=== PATIENT | female | born 1995 | race Caucasian/White ===

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

== ENCOUNTER 2017-01-19 01:27 | Emergency (ER) | payer OTHER ==
[~2017-01-19] VITALS: Ht 162.6 cm; Wt 105.7 kg
[2017-01-19 01:37] VITALS: BP 112/62
--- NOTE | 2017-01-19 01:44 | NUR ---
PT TAKEN TO BED 7
--- NOTE | 2017-01-19 01:50 | NUR ---
Ponce contreras in [facility] - 01/19/[address] at [address] Mclaughlin evaluating patient at bedside.
--- NOTE | 2017-01-19 03:12 | NUR ---
Dr. Mclaughlin evaluating patient at bedside.
[2017-01-19] MEDS ORDERED: cefTRIAXone 1,000 MG in LIDOCAINE 1% ED 2.1 ML IM ONE (03:20)
[2017-01-19] MEDS ORDERED: methylPREDNISolone SS 125 MG in WATER STERILE 2 ML IM ONE (03:20)
[2017-01-19 03:34] VITALS: BP 115/67
--- NOTE | 2017-01-19 03:35 | NUR ---
Patient discharged with v/s stable BY DR. ROSE. Written and verbal after care instructions given and explained. Patient alert, oriented and verbalized understanding of instructions. Ambulatory with steady gait. All questions addressed prior to discharge. ID band removed. Patient advised to follow up with PMD. Rx of MEDROL DOSEPAK 4MG, AUGMENTIN 875MG PO given. Patient educated on indication of medication including possible reaction and side effects. Opportunity to ask questions provided and answered.
== END 2017-01-19 03:35 | disposition home or self-care (01) ==
LOC: MED 01:27
DX: J02.9 Acute pharyngitis, unspecified (principal); J45.909 Unspecified asthma, uncomplicated; Z88.5 Allergy status to narcotic agent; Z79.82 Long term (current) use of aspirin; Z79.899 Other long term (current) drug therapy
CPT/HCPCS: 96372; 99284; J0696; J2001; J2930

== ENCOUNTER 2017-02-17 11:15 | Emergency (ER) | payer OTHER ==
[~2017-02-17] VITALS: Ht 163.8 cm; Wt 106.6 kg
[2017-02-17 11:29] VITALS: BP 125/77
[2017-02-17] MEDS ORDERED: ONDANSETRON 4 MG/2 ML VIAL IVP ONE (11:35)
[2017-02-17] MEDS ORDERED: NACL 0.9% 1,000 ML IV SCH (11:35)
[2017-02-17] MEDS ORDERED: NEURONTIN400 MG PO (11:38)
[2017-02-17] MEDS ORDERED: VENTOLIN H0.09 MG/Ac IH (11:55)
[2017-02-17] MEDS ORDERED: PROAIR HFA8.5 GM IH (12:03)
--- NOTE | 2017-02-17 14:28 | NUR ---
PT WHEELCHAIR SSISTED TO BED 8.
--- NOTE | 2017-02-17 14:31 | NUR ---
PT BIB MOTHER C/O VAGINAL BLEEDING W/ CLOTS X 5 WEEKS; PT WENT TO PCP TODAY, PASSED OUT, AND SENT TO ER.PT STATES SHE FEELS DIZZY;DENIES CP/SOB/N/V/F/ANY PAIN AT THIS TIME;ALERT AND AWAKE;NO ACUTE DISTRESS NOTED AT THIS TIME;HOB ELEVATED;NEEDS ATTENDED;SAFETY MEASURES DONE;MD MADE AWARE OF PT'S CONDITION.
--- NOTE | 2017-02-17 15:00 | NUR ---
PT LYING ON BED;NO ACUTE DISTRESS NOTED AT THIS TIME;WILL CONTINUE TO MONITOR PT.
--- NOTE | 2017-02-17 15:20 | NUR ---
IVF OF .9NS AND ZOFRAN WAS PUT ON HOLD BY DR HOANG.
--- NOTE | 2017-02-17 15:20 | NUR ---
Patient discharged with v/s stable. Written and verbal after care instructions given and explained.Patient alert, oriented and verbalized understanding of instructions. Ambulatory with to car. All questions addressed prior to discharge. ID band removed. Patient advised to follow up with PMD.Opportunity to ask questions provided and answered.
[2017-02-17 15:42] VITALS: BP 109/63
== END 2017-02-17 15:20 | disposition home or self-care (01) ==
LOC: MED 11:15
DX: N93.8 Other specified abnormal uterine and vaginal bleeding (principal); N85.00 Endometrial hyperplasia, unspecified; F84.0 Autistic disorder; J45.909 Unspecified asthma, uncomplicated; Z88.5 Allergy status to narcotic agent; Z79.82 Long term (current) use of aspirin; Z79.899 Other long term (current) drug therapy

== ENCOUNTER 2017-03-18 23:56 | Emergency (ER) | payer OTHER ==
[~2017-03-18] VITALS: Ht 162.6 cm; Wt 107.0 kg
[~2017-03-18 23:56] MED LIST changes: -ABILIFY2 MG PO; +ALBU0.0912 IH; +ALBU0.0946 IH; +ARIP2TAB PO; +ASPI325E46 PO; -ASPIRIN325 M3 PO; +BEN50 PO; -BENADRYL50 MG PO; +ESCI5TAB PO; +GABA400C PO; -INTUNIV; +LAM200 PO; -LAMICTAL200 MG PO; -LEXAPRO5 MG PO; -LITHIUM CARBON150 M1 PO; -LITHIUM CARBON150 MG PO; +MONT5CTB PO; -NEURONTIN100 MG PO; -PROAIR HFA0.09 MG/Ac IH; -SINGULAIR5 MG PO; -VENTOLIN0.09 MG/A1 IH; -[UNRECOGNIZED DRUG - OTHER] PO
[2017-03-18 23:57] VITALS: BP 111/84
--- NOTE | 2017-03-19 00:13 | NUR ---
PATIENT PRESENTS TO ED WITH C/O CP NON RADIATING X 1 DAY, PT DENIES N/V/D; SKIN IS PINK/WARM/DRY; AAOX4 WITH EVEN AND STEADY GAIT; LUNGS CLEAR BL; HR EVEN AND REGULAR; PT DENIES ANY FEVER, SOB, OR COUGH AT THIS TIME; PATIENT STATES PAIN OF 10/10 AT THIS TIME; VSS; PATIENT POSITIONED FOR COMFORT; HOB ELEVATED; BEDRAILS UP X2; BED DOWN. ER MD MADE AWARE OF PT STATUS.
--- NOTE | 2017-03-19 00:13 | NUR ---
Patient ambulated to bed 08.
--- NOTE | 2017-03-19 00:28 | NUR ---
Dr. Yee evaluating patient at bedside.
[2017-03-19] MEDS ORDERED: LORazepam 1 MG TAB PO ONE (00:35)
[2017-03-19] MEDS ORDERED: KETOROLAC 30 MG/ML VIAL IM ONE (00:35)
[2017-03-19 01:20] VITALS: BP 113/71
--- NOTE | 2017-03-19 01:20 | NUR ---
Patient discharged with v/s stable. Written and verbal after care instructions given and explained. Patient alert, oriented and verbalized understanding of instructions. Ambulatory with steady gait. All questions addressed prior to discharge. ID band removed. Patient advised to follow up with PMD. Rx of BENADRYL 25MG given. Patient educated on indication of medication including possible reaction and side effects. Opportunity to ask questions provided and answered.
== END 2017-03-19 01:20 | disposition home or self-care (01) ==
LOC: MED 23:56
DX: R07.89 Other chest pain (principal); J45.909 Unspecified asthma, uncomplicated; Z79.82 Long term (current) use of aspirin; Z79.899 Other long term (current) drug therapy; Z88.5 Allergy status to narcotic agent
CPT/HCPCS: 81002; 81025; 90471; 93005; 96372; 99283; J1885

== ENCOUNTER 2017-06-08 16:17 | Emergency (ER) | payer OTHER ==
[~2017-06-08] VITALS: Ht 161.3 cm; Wt 106.2 kg
[2017-06-08 16:23] VITALS: BP 129/75
--- NOTE | 2017-06-08 19:03 | NUR ---
PATIENT LEFT WITHOUT BEING SEEN BY DR. SANTOS. NO FURTHER CARE PROVIDED FOR PATIENT.
== END 2017-06-08 19:03 | disposition left against medical advice (07) ==
LOC: MED 16:17
DX: R55 Syncope and collapse (principal); J45.909 Unspecified asthma, uncomplicated; F31.9 Bipolar disorder, unspecified; F41.9 Anxiety disorder, unspecified; Z53.21 Procedure and treatment not carried out due to patient leaving prior to being seen by health care provider

== ENCOUNTER 2017-07-16 14:47 | Emergency (ER) | payer OTHER ==
[~2017-07-16] VITALS: Ht 162.6 cm; Wt 108.0 kg
[2017-07-16 14:53] VITALS: BP 144/72
--- NOTE | 2017-07-16 15:31 | NUR ---
PT AMBULATED TO BED 5.
--- NOTE | 2017-07-16 15:45 | NUR ---
21F BIB SELF C/O RT WRIST PAIN S/P FALL X YESTERDAY; PT STATES NO LOC AT TIME OF INCIDENT. HX: CONGENITAL HEART DEFECT, ASTHMA, AUTISM, BIPOLAR, DEPRESSION; DENIES N/V/D; SKIN IS PINK/WARM/DRY; AAOX4 WITH EVEN AND STEADY GAIT; LUNGS CLEAR BL; HR EVEN AND REGULAR; PT DENIES ANY FEVER, CP, SOB, OR COUGH AT THIS TIME; PATIENT STATES PAIN OF 8/10 AT THIS TIME; VSS; PATIENT POSITIONED FOR COMFORT; HOB ELEVATED; BEDRAILS UP X2; BED DOWN. ER MD MADE AWARE OF PT STATUS.
--- NOTE | 2017-07-16 16:00 | NUR ---
Dr adams evaluating aao pt at bedside
[2017-07-16 16:16] VITALS: BP 132/76
--- NOTE | 2017-07-16 16:16 | NUR ---
Patient discharged with v/s stable. Written and verbal after care instructions given and explained. Patient alert, oriented and verbalized understanding of instructions. Ambulatory with steady gait. All questions addressed prior to discharge. ID band removed. Patient advised to follow up with PMD. Rx of norco, motrin given. Patient educated on indication of medication including possible reaction and side effects. Opportunity to ask questions provided and answered.
== END 2017-07-16 16:16 | disposition home or self-care (01) ==
LOC: MED 14:47
DX: S52.591A Other fractures of lower end of right radius, initial encounter for closed fracture (principal); J45.909 Unspecified asthma, uncomplicated; Z79.82 Long term (current) use of aspirin; Z88.5 Allergy status to narcotic agent; Z79.899 Other long term (current) drug therapy; W19.XXXA Unspecified fall, initial encounter; Y93.89 Activity, other specified; Y92.89 Other specified places as the place of occurrence of the external cause; Y99.8 Other external cause status
CPT/HCPCS: 73110; 81002; 81025; 99284

== ENCOUNTER 2017-12-17 21:26 | Emergency (ER) | payer OTHER ==
[~2017-12-17] VITALS: Ht 152.4 cm; Wt 115.3 kg
[~2017-12-17 21:26] MED LIST changes: +ALBU-118 IH; -ALBU0.0946 IH
[2017-12-17 21:58] VITALS: BP 152/69
--- NOTE | 2017-12-17 22:06 | NUR ---
TO JORGE, A/W EDWIN HERNANDEZ ERMD NOTED, FOR XRAY RT WRIST
--- NOTE | 2017-12-17 23:23 | NUR ---
PATIENT AMBULATED TO ER BED 4.
--- NOTE | 2017-12-17 23:26 | NUR ---
22Y F BIB FAMILY C/O RIGHT WRIST PAIN X 2 HOURS. PT STATES SHE HAD MECHANICAL FALL LANDING ON HER RIGHT WRIST. CMS INTACT, CAP REFILL <3 SECS. PT DENIES ANY LOC/KO. PT DENIES ANY N/V/D OR CP AT THE MOMENT. PT AAOX4. PT STATES PAIN IS CONSTANT, SHARP, NON RADIATING 7/10 PAIN.
[2017-12-18 00:38] VITALS: BP 146/86
--- NOTE | 2017-12-18 00:38 | NUR ---
Patient discharged with v/s stable. Written and verbal after care instructions given and explained. Patient verbalized understanding. Ambulatory with steady gait. All questions addressed prior to discharge. Advised to follow up with PMD.
== END 2017-12-18 00:38 | disposition home or self-care (01) ==
LOC: MED 21:26 → EEVIPCON 21:26 → MED 12-18 00:38
DX: M25.531 Pain in right wrist (principal); J45.909 Unspecified asthma, uncomplicated; Z79.82 Long term (current) use of aspirin; Z79.899 Other long term (current) drug therapy; Z88.5 Allergy status to narcotic agent
CPT/HCPCS: 73110; 81025; 99284

== ENCOUNTER 2018-04-29 19:03 | Emergency (ER) | payer OTHER ==
[~2018-04-29] VITALS: Ht 160 cm; Wt 119.0 kg
[2018-04-29 19:11] VITALS: BP 146/90
--- NOTE | 2018-04-29 19:15 | NUR ---
TO LOBBY A/W BED, EDWIN ORTEGA, EDY NOTED
--- NOTE | 2018-04-29 19:30 | NUR ---
PATIENT PRESENTS TO ED WITH BILAT MID TO UPPER BACK PAIN X2 DAYS. PT STATES NO INJURY TO [place]. STATES INTENSE 10/10 PAIN. DENIES N/V/D; SKIN IS PINK/WARM/DRY; AAOX4 WITH EVEN AND STEADY GAIT; LUNGS CLEAR BL; HR EVEN AND REGULAR; PT DENIES ANY FEVER, CP, SOB, OR COUGH AT THIS TIME; VSS; PATIENT POSITIONED FOR COMFORT; HOB ELEVATED; BEDRAILS UP X2; BED DOWN. ER MD MADE AWARE OF PT STATUS. CONTINUE TO MONITOR.
--- NOTE | 2018-04-29 19:30 | NUR ---
Patient ambulated to bed 8. RN evaluating patient at bedside.
[2018-04-29] MEDS ORDERED: CYCLOBENZAPRINE 10 MG TAB PO ONE (20:25)
[2018-04-29] MEDS ORDERED: IBUPROFEN 800 MG TAB PO ONE (20:25)
[2018-04-29 21:53] VITALS: BP 144/84
--- NOTE | 2018-04-29 21:53 | NUR ---
Patient discharged with v/s stable. Written and verbal after care instructions given and explained. Patient alert, oriented and verbalized understanding of instructions. Ambulatory with steady gait. All questions addressed prior to discharge. ID band removed. Patient advised to follow up with PMD. Rx of FLEXERIL AND IBUPROFEN given. Patient educated on indication of medication including possible reaction and side effects. Opportunity to ask questions provided and answered.
== END 2018-04-29 21:53 | disposition home or self-care (01) ==
LOC: MED 19:03
DX: M54.9 Dorsalgia, unspecified (principal); J45.909 Unspecified asthma, uncomplicated; Z79.899 Other long term (current) drug therapy; Z79.82 Long term (current) use of aspirin; Z88.5 Allergy status to narcotic agent
CPT/HCPCS: 81002; 81025; 99283

== ENCOUNTER 2018-10-21 10:19 | Emergency (ER) | payer SELFPAY ==
[~2018-10-21] VITALS: Ht 162.6 cm; Wt 121.6 kg
[~2018-10-21 10:19] MED LIST changes: +ASPI-1790 PO; -ASPI325E46 PO
[2018-10-21 10:30] VITALS: BP 131/64
--- NOTE | 2018-10-21 10:37 | NUR ---
AFTER PROVIDING URINE SAMPLE, PT AMBULATES BACK TO THE LOBBY
--- NOTE | 2018-10-21 10:48 | NUR ---
PT AMBULATES WITH MOTHER TO BED 5
--- NOTE | 2018-10-21 10:55 | NUR ---
23 YO F BIB FAMILY MEMBER. C/O COUGH SINCE DAY AFTER LABOR DAY WITH LT SIDED CHEST PAIN BELOW LT BREAST WHEN COUGHING; PRESCRIBE WITH PREDNISONE AND "COUGH MEDICINE" BY PMD WITH NO RELIEF. LUNG SOUNDS CLEAR THROUGH OUT. PT STATES TO OCCASIONALLY HAVE THIN CLEAR MUCOUS AFTER COUGHING. AAOX4. BED IN LOWER LOCKED POSITION. ER MD MADE AWARE OF PT STATUS. WILL CONTINUE TO MONITOR. HX; ASTHMA, HEART DEFECT, ANXIETY, BIPOLAR, AUTISM RX; VENTOLIN, SINGULAIR, ABILIFY, LAMICTAL, LEXAPRO
--- NOTE | 2018-10-21 11:49 | NUR ---
RADIOLOGY AT BEDSIDE.
[2018-10-21] MEDS ORDERED: KETOROLAC 60 MG/2 ML VIAL IM ONE (11:55)
[2018-10-21] MEDS ORDERED: cefTRIAXone 1,000 MG in LIDOCAINE MPF 1% - 5 mL VIAL 2.1 ML IM ONE (12:00)
[2018-10-21 12:48] VITALS: BP 128/62
--- NOTE | 2018-10-21 12:48 | NUR ---
Patient discharged with v/s stable. Written and verbal after care instructions given and explained. Patient alert, oriented and verbalized understanding of instructions. Ambulatory with steady gait. All questions addressed prior to discharge. ID band removed. Patient advised to follow up with PMD. Rx of AUGMENTIN 875MG given. Patient educated on indication of medication including possible reaction and side effects. Opportunity to ask questions provided and answered.
== END 2018-10-21 12:48 | disposition home or self-care (01) ==
LOC: MED 10:19
DX: J20.9 Acute bronchitis, unspecified (principal); J45.909 Unspecified asthma, uncomplicated; R62.50 Unspecified lack of expected normal physiological development in childhood; Z88.5 Allergy status to narcotic agent; Z79.899 Other long term (current) drug therapy; Z79.82 Long term (current) use of aspirin
CPT/HCPCS: 71045; 81002; 81025; 96372; 99283; J0696; J1885; J2001; Q0092

== ENCOUNTER 2018-10-22 05:03 | Emergency (ER) | payer MEDICAID ==
[~2018-10-22] VITALS: Ht 165.1 cm; Wt 121.6 kg
[2018-10-22 05:15] VITALS: BP 117/78
[2018-10-22] MEDS: HYDROcodone/APAP 5/325 MG 1 TAB TAB PO ONE (05:32)
[2018-10-22 06:05] VITALS: BP 112/95
== END 2018-10-22 06:05 | disposition home or self-care (01) ==
LOC: MED 05:03
DX: J40 Bronchitis, not specified as acute or chronic (principal); J45.909 Unspecified asthma, uncomplicated; E66.9 Obesity, unspecified; Z68.41 Body mass index [BMI] 40.0-44.9, adult; Z88.5 Allergy status to narcotic agent; Z79.899 Other long term (current) drug therapy; Z79.82 Long term (current) use of aspirin
CPT/HCPCS: 99283

== ENCOUNTER 2018-12-02 09:46 | Emergency (ER) | payer MEDICAID ==
[~2018-12-02] VITALS: Ht 165.1 cm; Wt 81.6 kg
[2018-12-02 09:50] VITALS: BP 119/76
--- NOTE | 2018-12-02 09:50 | NUR ---
PATIENT AMBULATED TO BED 7 AT THIS TIME.
--- NOTE | 2018-12-02 10:05 | NUR ---
PT. BIB MOTHER DUE TO R UPPER ABD / INTERCOSTAL PAIN X LAST NIGHT THAT IS CONSTANT. PER PATIENT " I COUGHED LAST NIGHT AND IT JUST STARTED HURTING AND IT HAS BEEN CONSTANT". DENIES ANY N/V/D. ABD ROUND AND SOFT. PT ABLE TO SPEAK IN FULL AND COMPLETE SENTENCES. ER MD MADE AWARE. SAFETY PRECAUTIONS IN PLACE. MOTHER AT BEDSIDE. AFEBRILE AT THIS TIME. WILL CONTINUE TO MONITOR.
--- NOTE | 2018-12-02 10:12 | NUR ---
PT. UNABLE TO PROVIDE URINE SAMPLE AT THIS TIME. PROVIDED WITH GLASS OF WATER. LOREE VAZQUEZ MADE AWARE.
--- NOTE | 2018-12-02 11:07 | NUR ---
PT. IN BED , RR EVEN AND UNLABORED. WILL CONTINUE TO MONITOR. MOTHER AT BEDSIDE.
[2018-12-02] MEDS ORDERED: KETOROLAC 60 MG/2 ML VIAL IM ONE (11:20)
[2018-12-02 11:46] VITALS: BP 120/80
--- NOTE | 2018-12-02 11:46 | NUR ---
Patient discharged with v/s stable. Written and verbal after care instructions given and explained. Patient alert, oriented and verbalized understanding of instructions. Ambulatory with steady gait. All questions addressed prior to discharge. ID band removed. Patient advised to follow up with PMD. Rx of NORCO 5/325 given. Patient educated on indication of medication including possible reaction and side effects. Opportunity to ask questions provided and answered.
== END 2018-12-02 11:46 | disposition home or self-care (01) ==
LOC: MED 09:46
DX: R10.12 Left upper quadrant pain (principal); R05 Cough; R06.02 Shortness of breath; J45.909 Unspecified asthma, uncomplicated; Z88.5 Allergy status to narcotic agent; Z79.82 Long term (current) use of aspirin; Z79.899 Other long term (current) drug therapy
CPT/HCPCS: 81002; 81025; 96372; 99283; J1885

== ENCOUNTER 2019-07-05 17:21 | Emergency (ER) | payer OTHER ==
[~2019-07-05] VITALS: Ht 162.6 cm; Wt 121.6 kg
[2019-07-05 17:25] VITALS: BP 128/89
[2019-07-05] MEDS ORDERED: LORazepam 1 MG TAB PO ONE (17:35)
--- NOTE | 2019-07-05 17:44 | NUR ---
PT LEFT TO XRAY VIA WHEELCHAIR.
--- NOTE | 2019-07-05 17:46 | NUR ---
PT BIB SELF C/O UNABLE TO SPEAK. PT WRITING ON PAPER. ABLE TO MAKE SOUNDS. AIRWAY NOT COMPROMISED. PT ABLE TO OPEN MOUTH MOVE TONGUE. 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 NO FACIAL DROP NOTED. TOOK 1MG ATIVAN AT HOME 30 MIN AGO. PT SITTING IN BED NO ACUTE DISTRESS
--- NOTE | 2019-07-05 17:51 | NUR ---
pt back from ct via w/c
--- NOTE | 2019-07-05 18:01 | NUR ---
PT WROTE THAT SHE HAS SAID 3 WORDS. NOT FEELING MUCH BETTER AFTER THE ATIVAN SHE TOOK AT HOME. ABLE TO MAKE NOISES.
--- NOTE | 2019-07-05 18:06 | NUR ---
PT WAS ABLE TO HOLD CONVERSATION. CLEAR SPEECH
[2019-07-05 18:19] VITALS: BP 111/51
== END 2019-07-05 18:43 | disposition home or self-care (01) ==
LOC: MED 17:21
DX: R47.01 Aphasia (principal); J45.909 Unspecified asthma, uncomplicated; Z88.5 Allergy status to narcotic agent; Z79.82 Long term (current) use of aspirin; Z79.899 Other long term (current) drug therapy
CPT/HCPCS: 70360; 99283

== ENCOUNTER 2019-09-16 20:45 | Emergency (ER) | payer OTHER ==
[~2019-09-16] VITALS: Ht 160 cm; Wt 121.3 kg
[~2019-09-16 20:45] MED LIST changes: -ASPI-1790 PO; +ASPI-1886 PO
[2019-09-16 20:50] VITALS: BP 131/56
--- NOTE | 2019-09-16 20:53 | NUR ---
TO LOBBY A/W BED AMBULATORY
--- NOTE | 2019-09-16 21:53 | NUR ---
PT AMBULATED TO BED 7 WITH FAMILY MEMBER
--- NOTE | 2019-09-16 22:04 | NUR ---
23 Y/O FEMALE PRESENTS TO ED, C/O ABDOMINAL PAIN 06/19. PT STATES PAIN STARTED LAST FRIDAY. PRESENTED ON EPISGATRIC REGION AND PROGRESSED TO RIGHT ABDOMEN. BS ACTIVE X4 QUADRANTS. PT C/O N/V/D; STARTED YESTERDAY; LAST EPISODE FOR VOMITING YESTERDAY MORNING; LAST EPISODE OF DIARRHEA YESTERDAY NOON. PT ABLE TO TOLERATE SOME FOOD. PT DENIES TAKING ANY MEDICATIONS FOR PAIN. PT STABLE. ERMD AWARE. WILL CONTINUE TO MONITOR.
[2019-09-16] MEDS ORDERED: BACITRACIN OINT 500 UNITS/GM PKT TP ONE (22:48)
[2019-09-16 23:06] LABS: APPEARANCE,URINE CLOUDY (CLEAR); BILIRUBIN,URINE 1+ (NEGATIVE); BLOOD, URINE 3+ (NEGATIVE); COLOR,URINE BROWN (YELLOW); LEUKOCYTE ESTERASE ,URINE NEGATIVE (NEGATIVE); NITRITE, URINE POSITIVE (NEGATIVE); PH,URINE 5.5 (5.0-9.0); UGLUCOSE NEGATIVE (NEGATIVE)
[2019-09-16 23:07] LABS: BASOPHILS % (AUTO) 0.4 % (0.0-2.0); EOSINOPHILS # (AUTO) 0.2 K/uL (0-0.4); EOSINOPHILS % (AUTO) 2.5 % (0.0-4.0); HEMOGLOBIN 13.4 g/dL (12.0-16.0); LYMPHOCYTES # (AUTO) 1.5 K/uL (2.5-16.5); LYMPHOCYTES % (AUTO) 22.2 % (20.5-51.1); MEAN CORPUSCULAR HEMOGLOBIN 26 pg (27-31); MEAN CORPUSCULAR HGB CONC 33 g/dL (33-37); MEAN CORPUSCULAR VOLUME 78.5 fL (80-94); MONOCYTES # (AUTO) 0.5 K/uL (0.8-1.0); MONOCYTES % (AUTO) 7.8 % (1.7-9.3); NEUTROPHILS # (AUTO) 4.4 K/uL (1.8-7.7); NEUTROPHILS % (AUTO) 67.1 % (42.2-75.2); PLATELET COUNT (AUTO) 233 K/uL (140-450); RED BLOOD CELL COUNT(AUTO) 5.22 MIL/uL (4.20-5.40); RED CELL DISTRIBUTION WIDTH 16.7 % (11.6-13.7); WHITE BLOOD COUNT (AUTO) 6.6 K/uL (4.8-10.8)
[2019-09-16 23:16] LABS: ANION GAP 13.5 (8-16); CARBON DIOXIDE 30.1 mmol/L (21-32); CREATININE 0.6 mg/dL (0.6-1.3); POTASSIUM 3.6 mmol/L (3.5-5.1)
[2019-09-16 23:22] LABS: ALBUMIN 3.7 g/dL (3.4-5.0); TOTAL BILIRUBIN 0.3 mg/dL (0.0-1.0)
[2019-09-16 23:22] LABS: RBC,URINE TOO NUMEROUS TO COUN /HPF (0-5); WBC,URINE 0-5 /HPF (0-5)
--- NOTE | 2019-09-16 23:26 | NUR ---
PT BACK FROM CT
[2019-09-17 00:48] VITALS: BP 105/62
--- NOTE | 2019-09-17 00:48 | NUR ---
Patient discharged with v/s stable. Written and verbal after care instructions given and explained. Patient alert, oriented and verbalized understanding of instructions. Ambulatory with steady gait. All questions addressed prior to discharge BY DR ROSE. ID band removed. Patient advised to follow up with PMD BY DR ROSE. Rx of CIPRO given. Patient educated on indication of medication including possible reaction and side effects BY DR ROSE. Opportunity to ask questions provided and answered.
== END 2019-09-17 00:48 | disposition home or self-care (01) ==
LOC: MED 20:45
DX: N39.0 Urinary tract infection, site not specified (principal); R11.2 Nausea with vomiting, unspecified; J45.909 Unspecified asthma, uncomplicated; Z79.82 Long term (current) use of aspirin; Z79.899 Other long term (current) drug therapy; Z88.5 Allergy status to narcotic agent
CPT/HCPCS: 36415; 80053; 81001; 81025; 85025; 87086; 99284

== ENCOUNTER 2020-03-21 23:47 | Emergency (ER) | payer OTHER ==
[~2020-03-21] VITALS: Ht 165.1 cm; Wt 131.5 kg
[2020-03-21 23:50] VITALS: BP 116/49
--- NOTE | 2020-03-21 23:52 | NUR ---
PT TAKEN TO BED 10
--- NOTE | 2020-03-22 00:06 | NUR ---
Dr. Garcia examining patient.
[2020-03-22 00:39] LABS: BASOPHILS # (AUTO) 0.1 K/uL (0.00-0.22); BASOPHILS % (AUTO) 0.7 % (0.0-2.0); EOSINOPHILS # (AUTO) 0.6 K/uL (0-0.4); EOSINOPHILS % (AUTO) 5.8 % (0.0-4.0); HEMATOCRIT 36.6 % (36-48); HEMOGLOBIN 11.4 g/dL (12.0-16.0); LYMPHOCYTES % (AUTO) 20.1 % (20.5-51.1); MEAN CORPUSCULAR HEMOGLOBIN 22 pg (27-31); MEAN CORPUSCULAR HGB CONC 31 g/dL (33-37); MEAN CORPUSCULAR VOLUME 71.6 fL (80-94); MONOCYTES # (AUTO) 0.6 K/uL (0.8-1.0); MONOCYTES % (AUTO) 5.7 % (1.7-9.3); NEUTROPHILS # (AUTO) 6.8 K/uL (1.8-7.7); NEUTROPHILS % (AUTO) 67.7 % (42.2-75.2); PLATELET COUNT (AUTO) 285 K/uL (140-450); RED BLOOD CELL COUNT(AUTO) 5.12 MIL/uL (4.20-5.40); RED CELL DISTRIBUTION WIDTH 20.2 % (11.6-13.7); WHITE BLOOD COUNT (AUTO) 10.1 K/uL (4.8-10.8)
--- NOTE | 2020-03-22 00:42 | NUR ---
XRAY AT BEDSIDE
--- NOTE | 2020-03-22 00:42 | NUR ---
PER DR. MACDONALD, NO COVID PRECAUTION TO TAKE PLACE.
--- NOTE | 2020-03-22 00:46 | NUR ---
PT BIB MOTHER FOR C/O INTERMITTENT SOB X 1 MONTH. PT STATES SHE HAS INHALER AND NEBULIZER AT HOME BUT THE SOB CONTINUES TO RETURN. PT NOTED WITH DRY COUGH. AFEBRILE. RESPIRATIONS ARE SYMETRICAL BUT LABORED. HX: ASTHMA, BICUSPID AORTIC STENOSIS, AUTISM, ANXIETY, DEPRESSION, BIPOLAR DISORDER. ALLERGIES: CODINE
--- NOTE | 2020-03-22 00:52 | NUR ---
EKG PERFORMED AT BEDSIDE WITH FAMILY MEMBER PRESENT
[2020-03-22 00:54] LABS: ALBUMIN 3.6 g/dL (3.4-5.0); ANION GAP 9.9 (8-16); CARBON DIOXIDE 31.4 mmol/L (21-32); CREATININE 0.7 mg/dL (0.6-1.3); POTASSIUM 4.3 mmol/L (3.5-5.1); TOTAL BILIRUBIN 0.2 mg/dL (0.0-1.0)
[2020-03-22 01:01] LABS: D-DIMER < 100 ng/ml (0-400)
[2020-03-22 01:56] VITALS: BP 116/49
--- NOTE | 2020-03-22 01:57 | NUR ---
Patient discharged with v/s stable. Written and verbal after care instructions given and explained. Patient alert, oriented and verbalized understanding of instructions. Ambulatory with steady gait. All questions addressed prior to discharge. ID band removed. Patient advised to follow up with PMD. Rx of PREDNISONE; ALBUTEROL given. Patient educated on indication of medication including possible reaction and side effects. Opportunity to ask questions provided and answered.
== END 2020-03-22 01:57 | disposition home or self-care (01) ==
LOC: MED 23:47
DX: J45.901 Unspecified asthma with (acute) exacerbation (principal); F84.0 Autistic disorder; I51.89 Other ill-defined heart diseases; R06.02 Shortness of breath; R05 Cough; Z88.6 Allergy status to analgesic agent; Z79.899 Other long term (current) drug therapy
CPT/HCPCS: 36415; 71045; 80053; 82550; 83880; 84484; 85025; 85379; 85610; 85730; 93005; 99285; Q0092; 99283

== ENCOUNTER 2020-04-01 23:29 | Emergency (ER) | payer OTHER, SELFPAY ==
[~2020-04-01] VITALS: Ht 162.6 cm; Wt 130.6 kg
[2020-04-01 23:35] VITALS: BP 164/111
--- NOTE | 2020-04-01 23:35 | NUR ---
24/F presents ambulatory to ED with mother, c/o asthma exacerbation x6-8weeks but reports worsening tonight. Reports chest tightness (but not pain), SOB and chronic cough, symptoms x6-8 weeks. Pt was seen here 1 week ago, reports rx prednisone and albuterol inh and neb without relief. Pt awake and alert, skin normal color warm and dry, Spo2 94% on RA, rr 28 even and mildly labored. Dr Young made aware. hx asthma, congenital aortic valve defect, bipolar, depression/anxiety, autism
--- NOTE | 2020-04-01 23:35 | NUR ---
Awaiting bed availability. Pt mother made aware of no visitor policy when pt goes to her bed.
--- NOTE | 2020-04-01 23:35 | NUR ---
Pt triaged in medical tent, pt wearing mask, mother wearing mask. Appropriate PPE worn during encounter.
--- NOTE | 2020-04-02 00:09 | NUR ---
PT AMBULATED TO ER BED 9
--- NOTE | 2020-04-02 00:17 | NUR ---
ERMD BEDSIDE EVALUATING PT
--- NOTE | 2020-04-02 00:38 | NUR ---
LABS BEING DRAWN AT BEDSIDE.
--- NOTE | 2020-04-02 00:42 | NUR ---
EKG BEING DONE AT BEDSIDE.
[2020-04-02 01:00] LABS: BASOPHILS # (AUTO) 0.1 K/uL (0.00-0.22); HEMOGLOBIN 11.5 g/dL (12.0-16.0); MONOCYTES # (AUTO) 0.8 K/uL (0.8-1.0); MONOCYTES % (AUTO) 6.6 % (1.7-9.3)
[2020-04-02 01:11] LABS: BASOPHILS % (AUTO) 0.7 % (0.0-2.0); EOSINOPHILS # (AUTO) 0.9 K/uL (0-0.4); EOSINOPHILS % (AUTO) 7.2 % (0.0-4.0); HEMATOCRIT 36.8 % (36-48); LYMPHOCYTES # (AUTO) 2.2 K/uL (2.5-16.5); LYMPHOCYTES % (AUTO) 18.1 % (20.5-51.1); MEAN CORPUSCULAR HEMOGLOBIN 22 pg (27-31); MEAN CORPUSCULAR HGB CONC 31 g/dL (33-37); MEAN CORPUSCULAR VOLUME 70.8 fL (80-94); NEUTROPHILS # (AUTO) 8.3 K/uL (1.8-7.7); NEUTROPHILS % (AUTO) 67.4 % (42.2-75.2); PLATELET COUNT (AUTO) 284 K/uL (140-450); RED CELL DISTRIBUTION WIDTH 20.2 % (11.6-13.7); WHITE BLOOD COUNT (AUTO) 12.4 K/uL (4.8-10.8)
[2020-04-02 01:12] LABS: PROTHROMBIN TIME 9.9 secs (10.8-13.4)
[2020-04-02 01:16] LABS: ANION GAP 13.1 (8-16); CARBON DIOXIDE 28.6 mmol/L (21-32); CREATININE 0.8 mg/dL (0.6-1.3); POTASSIUM 3.7 mmol/L (3.5-5.1)
[2020-04-02 01:17] LABS: ALBUMIN 3.4 g/dL (3.4-5.0); TOTAL BILIRUBIN 0.5 mg/dL (0.0-1.0)
--- NOTE | 2020-04-02 01:48 | NUR ---
DR. SEGURA AT BEDSIDE.
--- NOTE | 2020-04-02 02:30 | NUR ---
PT RESTING IN BED, COUGH NOTED. RESPIRATIONS ARE EVEN AND UNLABORED. PT O2 SAT @ 96 % ON RA. PT AAO X4. LOOKING AT PHONE. JUICE GIVEN. 0/10 PAIN. ALL NEEDS MET AT THIS TIME.
--- NOTE | 2020-04-02 02:45 | NUR ---
Patient discharged with v/s stable. Written and verbal after care instructions given and explained. Patient alert, oriented and verbalized understanding of instructions. Ambulatory with steady gait. All questions addressed prior to discharge. ID band removed. Patient advised to follow up with PMD. Rx of AZITHROMYCIN given. Patient educated on indication of medication including possible reaction and side effects. Opportunity to ask questions provided and answered.
[2020-04-02 02:49] VITALS: BP 146/89
== END 2020-04-02 02:45 | disposition home or self-care (01) ==
LOC: MED 23:29 → EEVIPCON 23:29 → MED 04-02 02:45
DX: J40 Bronchitis, not specified as acute or chronic (principal); Z20.828 Contact with and (suspected) exposure to other viral communicable diseases; J45.909 Unspecified asthma, uncomplicated; F41.9 Anxiety disorder, unspecified; Z79.82 Long term (current) use of aspirin; Z79.899 Other long term (current) drug therapy; Z88.5 Allergy status to narcotic agent
CPT/HCPCS: 36415; 71045; 80053; 83880; 84484; 85025; 85610; 85730; 93005; 99285; C9803; Q0092; U0003

== ENCOUNTER 2020-08-25 22:38 | Emergency (ER) | payer OTHER, SELFPAY ==
[~2020-08-25] VITALS: Ht 162.6 cm; Wt 136.1 kg
[2020-08-25 22:56] VITALS: BP 145/85
--- NOTE | 2020-08-25 23:02 | NUR ---
[facility]ras in [facility] - 08/25/20 at 2306 [facility] AMBUL[facility] TO BED 09 WITH STEADY GAIT.
--- NOTE | 2020-08-25 23:06 | NUR ---
PT AMBULATED TO BED 04 WITH STEADY GAIT.
--- NOTE | 2020-08-25 23:14 | NUR ---
24 Y/O FEMALE C/O NAUSEA, FATIGUE, "BLACKING OUT" X 1 WEEK. DENIES DIARRHEA AND PAIN AT THIS TIME. PT STAES SHE FEELS "OUT OF BALANCE." ABD SOFT NON TENDER. LUNG SOUNDS CLA. VSS. MHX: CONGENITAL HEART DEFECTS, HEART SURGERY, ASTHMA, AUTISTIC, 2L O2 AT HOME ALLERGIES: CODEINE
--- NOTE | 2020-08-25 23:22 | NUR ---
Dr. Tamez at bedside.
[2020-08-26 00:20] VITALS: BP 145/85
--- NOTE | 2020-08-26 00:20 | NUR ---
Patient discharged with v/s stable. Written and verbal after care instructions given and explained. Patient alert, oriented and verbalized understanding of instructions. Ambulatory with steady gait. All questions addressed prior to discharge. ID band removed. Patient advised to follow up with PMD. Rx of CIPRO, ZOFRAN, AND MOTRIN given. Patient educated on indication of medication including possible reaction and side effects. Opportunity to ask questions provided and answered.
== END 2020-08-26 00:20 | disposition home or self-care (01) ==
LOC: MED 22:38
DX: R10.13 Epigastric pain (principal); R11.0 Nausea; R19.7 Diarrhea, unspecified; J45.909 Unspecified asthma, uncomplicated; Z88.5 Allergy status to narcotic agent; Z98.890 Other specified postprocedural states; Z79.899 Other long term (current) drug therapy; Z86.79 Personal history of other diseases of the circulatory system
CPT/HCPCS: 81002; 81025; 99283

== ENCOUNTER 2021-04-21 20:52 | Emergency (ER) | payer OTHER ==
[~2021-04-21] VITALS: Ht 162.6 cm; Wt 144.9 kg
[2021-04-21 21:19] VITALS: BP 124/64
--- NOTE | 2021-04-21 21:24 | NUR ---
Pt ambulated to ER [facility] w/ steady gait. VSS. No acute distress noted.
--- NOTE | 2021-04-21 22:00 | NUR ---
c/o rt wrist pain x 2 day. Pain a 7/10 throbbing of the right wrist. +ROM. slightly swollen. VSS. AAOx4. pmh: surgery on rt wrist , congenital heart defect of aortic valve, asthma, ax: codeine
--- NOTE | 2021-04-21 22:03 | NUR ---
Ice therapy for right wrist to help relieve pain
--- NOTE | 2021-04-21 22:49 | NUR ---
ERMD at bedside for examination
[2021-04-21] MEDS ORDERED: KETOROLAC 30 MG/ML VIAL IM ONE (23:15)
--- NOTE | 2021-04-21 23:30 | NUR ---
Patient discharged with v/s stable. Pain of 3/10. Written and verbal after care instructions given and explained. Patient verbalized understanding. Ambulatory with steady gait. ID band removed. All questions addressed prior to discharge. Advised to follow up with PMD.
[2021-04-21 23:35] VITALS: BP 139/93
== END 2021-04-21 23:30 | disposition home or self-care (01) ==
LOC: MED 20:52
DX: S63.501A Unspecified sprain of right wrist, initial encounter (principal); J45.909 Unspecified asthma, uncomplicated; Z79.899 Other long term (current) drug therapy; Z79.82 Long term (current) use of aspirin; Z88.5 Allergy status to narcotic agent; W01.0XXA Fall on same level from slipping, tripping and stumbling without subsequent striking against object, initial encounter; Y93.89 Activity, other specified; Y92.832 Beach as the place of occurrence of the external cause; Y99.8 Other external cause status
CPT/HCPCS: 29125; 73110; 81025; 96372; 99283; J1885

== ENCOUNTER 2021-09-14 15:24 | Emergency (ER) | payer OTHER ==
[~2021-09-14] VITALS: Ht 162.6 cm; Wt 116.1 kg
[2021-09-14 15:35] VITALS: BP 138/82
--- NOTE | 2021-09-14 15:40 | NUR ---
PT W/C ASSISTED TO ER BED 9.
--- NOTE | 2021-09-14 15:48 | NUR ---
PER ERMD 12 LEAD WAS DONE ON PT AND CAME BACK NSR AT 90 HR.
--- NOTE | 2021-09-14 15:51 | NUR ---
DR. LIU BEDSIDE EVALUATING PT
[2021-09-14] MEDS ORDERED: KETOROLAC 30 MG/ML VIAL IVP ONE (16:00)
[2021-09-14] MEDS ORDERED: NACL 0.9% 1,000 ML IV ONE (16:00)
--- NOTE | 2021-09-14 16:12 | NUR ---
24 G IV ESTABLISHED IN L HAND. BLOOD WORK COLLECTED AND HANDED TO [employer]
--- NOTE | 2021-09-14 16:19 | NUR ---
25 Y/O FEMALE C/O DIZZINESS S/P FALL X1HR AT HOME DENIES LOC, DENIES HEAD INJURY, C/O RIGHT KNEE PAIN 11/19. DENIES FEVER/CHILLS, DENIES N/V. BED IS AT THE LOWEST SETTINIG, SIDERAILX1 AND CALL LIGHT WITHIN REACH. DENIES PMH ALLERGIES: CODEINE
--- NOTE | 2021-09-14 16:20 | NUR ---
XRAY BEDSIDE WITH PATIENT
[2021-09-14 16:24] LABS: BASOPHILS % (AUTO) 0.4 % (0.0-2.0); EOSINOPHILS # (AUTO) 0.2 K/uL (0-0.4); EOSINOPHILS % (AUTO) 2.9 % (0.0-4.0); HEMOGLOBIN 10.9 g/dL (12.0-16.0); LYMPHOCYTES # (AUTO) 1.4 K/uL (2.5-16.5); LYMPHOCYTES % (AUTO) 18.8 % (20.5-51.1); MEAN CORPUSCULAR HEMOGLOBIN 21 pg (27-31); MEAN CORPUSCULAR HGB CONC 31 g/dL (33-37); MEAN CORPUSCULAR VOLUME 68.5 fL (80-94); MONOCYTES # (AUTO) 0.6 K/uL (0.8-1.0); MONOCYTES % (AUTO) 7.5 % (1.7-9.3); NEUTROPHILS # (AUTO) 5.2 K/uL (1.8-7.7); NEUTROPHILS % (AUTO) 70.4 % (42.2-75.2); PLATELET COUNT (AUTO) 306 K/uL (140-450); RED BLOOD CELL COUNT(AUTO) 5.11 MIL/uL (4.20-5.40); RED CELL DISTRIBUTION WIDTH 20.7 % (11.6-13.7); WHITE BLOOD COUNT (AUTO) 7.4 K/uL (4.8-10.8)
[2021-09-14 16:33] LABS: ALBUMIN 3.4 g/dL (3.4-5.0); ANION GAP 9.1 (8-16); CARBON DIOXIDE 33.3 mmol/L (21-32); CREATININE 0.7 mg/dL (0.6-1.3); POTASSIUM 4.4 mmol/L (3.5-5.1); TOTAL BILIRUBIN 0.2 mg/dL (0.0-1.0)
--- NOTE | 2021-09-14 16:57 | NUR ---
UA COLLECTED AND WALKED OVER TO LAB
[2021-09-14 17:00] LABS: APPEARANCE,URINE CLEAR (CLEAR); BILIRUBIN,URINE NEGATIVE (NEGATIVE); BLOOD, URINE 2+ (NEGATIVE); COLOR,URINE YELLOW (YELLOW); LEUKOCYTE ESTERASE ,URINE NEGATIVE (NEGATIVE); NITRITE, URINE NEGATIVE (NEGATIVE); UGLUCOSE NEGATIVE (NEGATIVE)
[2021-09-14 17:43] LABS: RBC,URINE 0-5 /HPF (0-5); WBC,URINE 0-5 /HPF (0-5)
--- NOTE | 2021-09-14 18:07 | NUR ---
Patient appears to be resting comfortably in bed. Vital Signs within normal limits. Respirations even and unlabored.
--- NOTE | 2021-09-14 19:24 | NUR ---
REPORTS RECEIVED FROM JOSE SEVILLA FOR CONTINUITY OF PT CARE AT THIS TIME.
--- NOTE | 2021-09-14 19:24 | NUR ---
Pt report given to LUCIA GARCIA. Transfer of care at this time.
--- NOTE | 2021-09-14 19:32 | NUR ---
PT LAYING IN BED LOCKED IN LOWEST POSITION W X2 SIDERAILS UP FOR PT SAFETY, HOB ELEVATED. PT REPORTS HER DIZZINESS OCCURED PRIOR TO HER FALL. PT DENIES ANY DIZZINESS AT THIS TIME, NAUSEA, PAIN OR OTHER SYMPTOMS. PROVIDED PT W WATER PER REQUEST. PT NEEDS MET AT THIS TIME. VSS. BREATHING EVEN AND UNLABORED. NAD NOTED, WILL CONTINUE TO MONITOR.
[2021-09-14] MEDS ORDERED: FERR236T2 PO (19:43)
[2021-09-14 20:05] VITALS: BP 110/71
--- NOTE | 2021-09-14 20:08 | NUR ---
Patient discharged with v/s stable. Written and verbal after care instructions given and explained. Patient alert, oriented and verbalized understanding of instructions. Ambulatory with steady gait. All questions addressed prior to discharge. ID band removed. Patient advised to follow up with PMD. Rx of FERROUS GLUCONATE given. Patient educated on indication of medication including possible reaction and side effects. Opportunity to ask questions provided and answered.
== END 2021-09-14 20:08 | disposition home or self-care (01) ==
LOC: MED 15:24
DX: R55 Syncope and collapse (principal); D64.9 Anemia, unspecified; R42 Dizziness and giddiness; J45.909 Unspecified asthma, uncomplicated; Z88.5 Allergy status to narcotic agent; Z79.899 Other long term (current) drug therapy; Z79.82 Long term (current) use of aspirin; Z98.890 Other specified postprocedural states
CPT/HCPCS: 36415; 71045; 80053; 81001; 81025; 83880; 84484; 84702; 85025; 85379; 93005; 96361; 96374; 99285; J1885; J7030; Q0092

== ENCOUNTER 2021-10-20 14:10 | Emergency (ER) | payer OTHER ==
[~2021-10-20] VITALS: Ht 162.6 cm; Wt 140.6 kg
[~2021-10-20 14:10] MED LIST changes: +FERR236T2 PO
[2021-10-20 14:25] VITALS: BP 107/64
--- NOTE | 2021-10-20 14:30 | NUR ---
BIB SELF C/O 6/10 EPIGASTRIC PAIN X 2 DAYS. LAST BM NORMAL YESTERDAY. DENIES N/V. PMH: ASTHMA, CONGENITAL HEART VALVE DEFECT & CONGENITAL HEART LESION SURGERY, MULLINS DEFECT, ANEMIA
[2021-10-20] MEDS ORDERED: DICYCLOMINE HCL LIQUID 20 MG, ALUMINUM HYD/MAG/SIMETHICONE 30 ML, LIDOCAINE VISCOUS 2% ... PO ONE ×3 (14:40)
[2021-10-20] MEDS ORDERED: OMEP40EC24 PO (15:04)
[2021-10-20] MEDS ORDERED: IBUP-2213 PO (15:04)
[2021-10-20] MEDS ORDERED: ALUMINUM HYD/MAG/SIMETHICONE 30 ML UDC ONE (15:16)
[2021-10-20] MEDS ORDERED: DICYCLOMINE HCL LIQUID 10 MG/5 ML UDC ONE (15:16)
[2021-10-20 15:58] VITALS: BP 121/53
--- NOTE | 2021-10-20 15:58 | NUR ---
Patient discharged with v/s stable. Written and verbal after care instructions given and explained. Patient alert, oriented and verbalized understanding of instructions. Ambulatory with steady gait. All questions addressed prior to discharge. ID band removed. Patient advised to follow up with PMD. Rx of IBUPROFEN & PRILOSEC given. Patient educated on indication of medication including possible reaction and side effects. Opportunity to ask questions provided and answered.
== END 2021-10-20 15:58 | disposition home or self-care (01) ==
LOC: MED 14:10
DX: R10.13 Epigastric pain (principal); J45.909 Unspecified asthma, uncomplicated; Z98.890 Other specified postprocedural states; Z79.899 Other long term (current) drug therapy; Z79.82 Long term (current) use of aspirin; Z88.5 Allergy status to narcotic agent
CPT/HCPCS: 81002; 81025; 99283